=== PATIENT | male | born 1985 | race Caucasian/White ===

== ENCOUNTER 2017-05-13 15:36 | Outpatient (CLI) | payer OTHER ==
--- NOTE | 2017-05-14 10:58 | XRAY Report ---
COMPLETE PARANASAL SINUSES: 05/13/2017 CLINICAL INDICATION: Acute sinusitis. FINDINGS: AP, Devries, lateral views of the paranasal sinuses demonstrate normal aeration. No mucosal thickening or air fluid levels are appreciated. There is leftward septal deviation. No osseous destruction is seen. IMPRESSION: LEFTWARD SEPTAL DEVIATION. NO EVIDENCE OF ACUTE OR CHRONIC SINUSITIS. TD: 05/14/2017 10:57
== END 2017-05-13 15:37 | disposition home or self-care (01) ==
LOC: DI.N 15:36
PROVIDERS: ATTEND Family Medicine
DX: J34.2 Deviated nasal septum (principal)
CPT/HCPCS: 70220